=== PATIENT | female | born 1955 | race Hispanic/Latino ===

== ENCOUNTER 2017-10-20 14:22 | Outpatient (CLI) | payer BC ==
--- NOTE | 2017-10-20 22:28 | XRay Report ---
FINAL REPORT EXAM: XR SPINE CERVICAL 2-3V HISTORY: CERVICAL SPINE PAIN TECHNIQUE: AP, lateral , swimmer's, and odontoid views of the cervical spine PRIORS: None. FINDINGS: The vertebral body heights and disc spaces are well maintained. The alignment is normal. No prevertebral soft tissue swelling is seen. The odontoid is intact. Moderate disc space narrowing from C4 through C7 is seen with spurring anteriorly and posteriorly. IMPRESSION: No acute abnormality in the cervical spine. Moderate disc space narrowing throughout the lower half of the cervical spine.
== END 2017-10-20 14:23 | disposition home or self-care (01) ==
LOC: SPVIMAG 14:22
PROVIDERS: ATTEND Orthopaedic Surgery Sports Medicine
DX: M54.2 Cervicalgia (principal)
CPT/HCPCS: 72040